=== PATIENT | female | born 1990 | race Caucasian/White ===

== ENCOUNTER 2022-11-09 16:30 | Emergency (ER) | payer OTHER ==
[~2022-11-09] VITALS: Ht 167.6 cm; Wt 49.9 kg
[2022-11-09] MEDS ORDERED: ONDANSETRON ODT8 MG PO (20:24)
[2022-11-09] MEDS ORDERED: PEPCID AC20 MG PO (20:24)
== END 2022-11-09 21:22 | disposition home or self-care (01) ==
LOC: ER 16:30
DX: O03.9 Complete or unspecified spontaneous abortion without complication (principal); O21.0 Mild hyperemesis gravidarum